=== PATIENT | male | born 1955 | race Hispanic/Latino ===

== ENCOUNTER 2023-11-01 17:42 | Inpatient (IN) | payer MEDICARE ==
[~2023-11-01 17:42] MED LIST: Iopamidol-370 76% 500 ML MDV (1 ML CHARGE) ONE
[2023-11-01] MEDS ORDERED: Ondansetron PF 4 MG/2 ML Vial ONE ×2 (18:15→20:29)
[2023-11-01] MEDS ORDERED: Morphine 4 MG/ML VIAL ONE ×2 (18:15→20:29)
[2023-11-01 18:32] LABS: #Basophils 0.04 10x3/uL (0.0-0.2); %Basophils 0.3 % (0.0-1.0); %Eosinophils 0.3 % (0.0-10.0); %Lymphocytes 5.1 % (21.0-51.0); %Monocytes 6.9 % (0.0-10.0); %Neutrophils 87.1 % (42.0-75.0); Hematocrit 39.1 % (42.0-52.0); Mean Corpuscular HGB CONC 35.8 g/dL (32.0-36.0); Mean Corpuscular Hemoglobin 33.9 pg (27.0-31.0); Mean Corpuscular Volume 94.7 fL (78.0-98.0); Mean Platelet Volume 10.8 fL (7.4-10.4); Platelet Count 106 10x3/uL (130-400); RBC Distribution Width 13.9 % (11.5-14.5); Red Blood Cell (RBC) Count 4.13 mill/uL (4.70-6.10)
[2023-11-01 18:42] LABS: INR-International Normal Ratio 1.5; PTT 29.9 sec (22.9-36.1); Prothrombin Time 17.8 sec (12.0-14.7)
[2023-11-01 18:47] LABS: ALT (SGPT) 23 U/L (8-55); AST (SGOT) 32 U/L (5-34); Albumin 3.1 g/dL (3.4-4.8); Alkaline Phosphatase 128 U/L (40-110); Anion Gap 17 mmol/L (10-20); BUN (Urea Nitrogen) 11 mg/dL (8.4-25.7); Bilirubin, Total 5.5 mg/dL (0.2-1.2); Calc. Creatinine Clearance 0 mL/min (70-130); Calcium 8.8 mg/dL (7.8-10.44); Carbon Dioxide 18 mmol/L (23-31); Chloride 104 mmol/L (98-107); Estimated GFR 73; Glucose 143 mg/dL (80-115); Lipase 22 U/L (8-78); Potassium 3.9 mmol/L (3.5-5.1); Protein, Total 7.1 g/dL (5.8-8.1); Sodium 135 mmol/L (136-145)
[2023-11-01 18:52] LABS: Troponin I Less than 0.010 ng/mL (< 0.028)
[2023-11-01] MEDS ORDERED: Piperacillin/Tazobactam 4.5 GM VIAL ONE (20:29)
[2023-11-01] MEDS ORDERED: Sodium Chloride 0.9% 100 ML ONE ×2 (20:29→21:19)
[2023-11-01 20:49] LABS: Bilirubin Moderate (Negative); Blood, Urine Large (Negative); Glucose, Urine (Dipstick) Negative (Negative); Ketone, Urine Negative (Negative); Leukocyte Negative (Negative); Nitrite Positive (Negative); Protein, Urine (Dipstick) 100 mg/dL (Neg-Trace); pH, Urine 5.5 (5.0-9.0)
[2023-11-01 20:51] LABS: Clarity Hazy (Clear)
[2023-11-01 20:53] LABS: CAUTI Indications for Culture Pelvic or flank pain; Calcium Oxalate Crystals 1+ HPF (None Seen); RBC/HPF Greater than 50 HPF (0-3); Squamous Epithelial 0-3 HPF (0-3); WBC/HPF Greater than 50 HPF (0-3)
[2023-11-01 21:00] LABS: Bacteria/HPF 2+ HPF (None Seen); Yeast-Budding 1+ HPF (None Seen)
[2023-11-01 21:01] LABS: Urine Culture Reflex Yes Yes
[2023-11-01] MEDS ORDERED: cefTRIAXone (ROCEPHIN) 2 GM VIAL ONE (21:19)
[2023-11-01 21:23] LABS: Lactic Acid 2.1 mmol/L (0.5-2.2)
[2023-11-01] MEDS ORDERED: Ondansetron PF 4 MG/2 ML Vial IVP PRN ×2 (22:37→22:45)
[2023-11-01] MEDS ORDERED: Acetaminophen 650 MG Suppository PR PRN (22:37)
[2023-11-01] MEDS ORDERED: Ondansetron ODT 4 MG TAB PO PRN (22:37)
[2023-11-01] MEDS ORDERED: Acetaminophen 325 MG TAB PO PRN (22:37)
[2023-11-01] MEDS ORDERED: Ondansetron ODT 4 MG TAB SL PRN (22:45)
[2023-11-01 22:46] VITALS: BMI 30.9
[2023-11-01] MEDS: Sodium Chloride 0.9% 1,000 ML IV SCH (23:41)
[2023-11-02 07:33] LABS: Anion Gap 10 mmol/L (10-20); BUN (Urea Nitrogen) 11 mg/dL (8.4-25.7); Calc. Creatinine Clearance 74 mL/min (70-130); Calcium 7.7 mg/dL (7.8-10.44); Carbon Dioxide 22 mmol/L (23-31); Chloride 108 mmol/L (98-107); Estimated GFR 73; Glucose 113 mg/dL (80-115); Potassium 4.3 mmol/L (3.5-5.1); Sodium 136 mmol/L (136-145)
[2023-11-02 07:55] LABS: #Basophils 0.03 10x3/uL (0.0-0.2); %Basophils 0.4 % (0.0-1.0); %Eosinophils 1.3 % (0.0-10.0); %Lymphocytes 9.7 % (21.0-51.0); %Monocytes 9.8 % (0.0-10.0); %Neutrophils 78.4 % (42.0-75.0); Hematocrit 34.7 % (42.0-52.0); Mean Corpuscular HGB CONC 34.6 g/dL (32.0-36.0); Mean Corpuscular Hemoglobin 34.2 pg (27.0-31.0); Mean Corpuscular Volume 98.9 fL (78.0-98.0); Platelet Count 74 10x3/uL (130-400); RBC Distribution Width 14.5 % (11.5-14.5); Red Blood Cell (RBC) Count 3.51 mill/uL (4.70-6.10)
[2023-11-02] MEDS ORDERED: Non-Formulary Item 1 EACH (Lactulose 10 Gm/15ml Oral Sol 10 GM/15 ML Ml) PO PRN (08:42)
[2023-11-02] MEDS: Spironolactone 100 MG TAB PO SCH (08:57)
[2023-11-02] MEDS: Furosemide 20 MG TAB PO SCH (08:57)
[2023-11-02] MEDS: Lactulose 20 GM (30 mL) UDCUP PO PRN (12:19)
[2023-11-02] MEDS: Vancomycin (BATCH) 2 GM in Premix 1 BAG IVPB SCH (16:21)
[2023-11-02] MEDS: cefTRIAXone\\ROCEPHIN 1 GM in Sodium Chloride 0.9% 100 ML IVPB SCH (20:46)
[2023-11-02] MEDS ORDERED: Vancomycin (BATCH) 1.25 GM in Premix 1 BAG IVPB SCH (21:00)
[2023-11-03 08:29] LABS: #Basophils 0.04 10x3/uL (0.0-0.2); %Basophils 0.5 % (0.0-1.0); %Eosinophils 3.6 % (0.0-10.0); %Lymphocytes 16.2 % (21.0-51.0); %Monocytes 10.5 % (0.0-10.0); %Neutrophils 68.9 % (42.0-75.0); Hematocrit 35.1 % (42.0-52.0); Hemoglobin 12.1 g/dL (14.0-18.0); Mean Corpuscular HGB CONC 34.5 g/dL (32.0-36.0); Mean Corpuscular Hemoglobin 33.4 pg (27.0-31.0); Mean Platelet Volume 11.5 fL (7.4-10.4); Platelet Count 90 10x3/uL (130-400); RBC Distribution Width 14.3 % (11.5-14.5); Red Blood Cell (RBC) Count 3.62 mill/uL (4.70-6.10)
[2023-11-03 08:34] LABS: Vancomycin, Random 16.3 ug/mL (See Comment)
[2023-11-03 08:39] LABS: Anion Gap 11 mmol/L (10-20); BUN (Urea Nitrogen) 9 mg/dL (8.4-25.7); Calc. Creatinine Clearance 85 mL/min (70-130); Calcium 8.2 mg/dL (7.8-10.44); Carbon Dioxide 24 mmol/L (23-31); Chloride 105 mmol/L (98-107); Estimated GFR 86; Glucose 81 mg/dL (80-115); Sodium 136 mmol/L (136-145)
[2023-11-03 15:25] VITALS: BMI 30.9
[2023-11-03] MEDS: Vancomycin (BATCH) 1.75 GM in Premix 1 BAG IVPB SCH (15:28)
[2023-11-04 05:40] LABS: Vancomycin, Random 21.3 ug/mL (See Comment)
[2023-11-04 08:07] VITALS: BP 141/92; TEMP 98.4
== END 2023-11-04 10:22 | disposition home or self-care (01) | DRG 872 ==
LOC: ERS 17:42 → T4-A 21:25 → OBSVTOIN 11-02 08:50
PROVIDERS: ADMIT Student in an Organized Health Care Education/Training Program; ATTEND Hospitalist
DX: A41.2 Sepsis due to unspecified staphylococcus (principal); N39.0 Urinary tract infection, site not specified; E87.20 Acidosis, unspecified; N13.6 Pyonephrosis; K70.31 Alcoholic cirrhosis of liver with ascites; D69.6 Thrombocytopenia, unspecified; Z90.49 Acquired absence of other specified parts of digestive tract; Z87.891 Personal history of nicotine dependence; R65.20 Severe sepsis without septic shock; Z79.899 Other long term (current) drug therapy
CPT/HCPCS: 36415; 71045; 74177; 80048; 80053; 80202; 81001; 82140; 83605; 83690; 83735; 83880; 84484; 85025; 85610; 85730; 87040; 87077; 87086; 93005; 94760; J0696; J2270; J2405; J2543; J3370; J3490; J7050; Q9967

== ENCOUNTER 2024-02-20 13:47 | Outpatient (CLI) | payer MEDICARE | END 2024-02-20 13:48 | disposition home or self-care (01) | LOC: SCSMRI 13:47 | PROVIDERS: ATTEND Internal Medicine Gastroenterology | DX: K74.60 Unspecified cirrhosis of liver (principal); R18.8 Other ascites; K76.82 Hepatic encephalopathy; K76.6 Portal hypertension | CPT/HCPCS: 74183; 82565 ==